=== PATIENT | female | born 1945 | race Hispanic/Latino ===

== ENCOUNTER 2018-03-05 17:20 | Emergency (ER) | payer MEDICARE ==
[~2018-03-05 17:20] MED LIST: ACET-2247 PO; ATOR40TA69 PO; DOCU100C19 PO; FERR324T10 PO; LACT10SO PO; OLAN10TA20 PO; OMEP20CA10 PO; PRAZ1CAP5 PO
[2018-03-05] MEDS ORDERED: LIDOCAINE HCL 1% 20 ML VIAL ONE (18:41)
[2018-03-05 18:44] LABS: BASOPHILS % (AUTO) 1.1 % (0.0-5.0); EOSINOPHILS % (AUTO) 0.9 % (0.0-8.0); HEMATOCRIT 37.5 % (36-48); LYMPHOCYTES % (AUTO) 17.1 % (21.0-51.0); MEAN CORPUSCULAR HEMOGLOBIN 31.2 pg (27.0-33.0); MEAN CORPUSCULAR HGB CONC 34.6 g/dL (32.0-36.0); MEAN CORPUSCULAR VOLUME 90.4 fL (79-99); MONOCYTES % (AUTO) 17.2 % (3.0-13.0); NEUTROPHILS % (AUTO) 63.7 % (40.0-77.0); PLATELET COUNT (AUTO) 162 K/uL (130-400); RED BLOOD CELL COUNT(AUTO) 4.15 MIL/uL (4.00-5.50); RED CELL DISTRIBUTION WIDTH 14.7 % (11.0-15.5)
[2018-03-05 18:53] LABS: CREATININE 1.4 mg/dL (0.5-1.5)
== END 2018-03-05 23:23 | disposition home or self-care (01) ==
LOC: EDH 17:20
DX: S01.511A Laceration without foreign body of lip, initial encounter (principal); F20.9 Schizophrenia, unspecified; F29 Unspecified psychosis not due to a substance or known physiological condition; W18.39XA Other fall on same level, initial encounter; Y93.01 Activity, walking, marching and hiking; Y92.89 Other specified places as the place of occurrence of the external cause; Y99.8 Other external cause status
CPT/HCPCS: 12013; 36415; 70450; 70486; 71045; 73562; 80048; 84484; 85025; 93005

== ENCOUNTER 2020-01-17 06:36 | Day surgery (SDC) | payer MEDICARE ==
[~2020-01-17] VITALS: Ht 162.6 cm; Wt 72.6 kg
[~2020-01-17 06:36] MED LIST changes: +DOCU-282 PO; -DOCU100C19 PO; -OMEP20CA10 PO; +OMEP20CA12 PO; +SODIUM CHLORIDE 0.9% 1000ML 1,000 ML IV ONE
[2020-01-17 07:28] VITALS: BP 126/82
[2020-01-17] MEDS ORDERED: TRAM50TA4 PO (07:54)
[2020-01-17] MEDS ORDERED: TRIH2TAB3 PO (07:54)
[2020-01-17] MEDS ORDERED: OXYB10TA30 PO (07:54)
[2020-01-17] MEDS ORDERED: FOLIC ACID PO (07:54)
[2020-01-17] MEDS ORDERED: SEROQUEL PO (07:54)
[2020-01-17] MEDS ORDERED: TROL35.4 TP (07:54)
[2020-01-17] MEDS ORDERED: BENA1POW2 MC (07:54)
[2020-01-17] MEDS ORDERED: SPIR25TA PO (07:54)
[2020-01-17] MEDS ORDERED: FURO-152 PO (07:54)
[2020-01-17] MEDS ORDERED: VITA-164 PO (07:54)
[2020-01-17] MEDS ORDERED: FLUTICASONE (07:54)
[2020-01-17] MEDS ORDERED: CALC-190 PO (07:54)
[2020-01-17] MEDS ORDERED: MULT-1203 PO (07:54)
[2020-01-17] MEDS ORDERED: DONE5TAB33 PO (07:54)
[2020-01-17] MEDS ORDERED: THIA100V3 IJ (07:54)
[2020-01-17] MEDS ORDERED: ALEN70TA10 PO (07:54)
[2020-01-17] MEDS ORDERED: LEVE500L PO (07:54)
[2020-01-17] MEDS ORDERED: PROPOFOL 10 MG/ML 20ML VIAL IV ONE (08:33)
[2020-01-17 08:51] VITALS: BP 101/59
[2020-01-17 08:55] VITALS: BP 104/78
[2020-01-17 09:00] VITALS: BP 108/70
[2020-01-17 09:05] VITALS: BP 107/65
[2020-01-17 09:15] VITALS: BP 114/70
== END 2020-01-17 09:30 | disposition home or self-care (01) ==
LOC: ENDO 06:36 → DAH 06:36 → ENDO 09:30
PROVIDERS: ATTEND Internal Medicine Gastroenterology
DX: R12 Heartburn (principal); K29.70 Gastritis, unspecified, without bleeding; K22.8 Other specified diseases of esophagus; K44.9 Diaphragmatic hernia without obstruction or gangrene; K21.9 Gastro-esophageal reflux disease without esophagitis; E11.22 Type 2 diabetes mellitus with diabetic chronic kidney disease; I12.9 Hypertensive chronic kidney disease with stage 1 through stage 4 chronic kidney disease, or unspecified chronic kidney disease; N18.9 Chronic kidney disease, unspecified; F31.9 Bipolar disorder, unspecified; M19.90 Unspecified osteoarthritis, unspecified site; G20 Parkinson's disease; F20.9 Schizophrenia, unspecified; F03.90 Unspecified dementia, unspecified severity, without behavioral disturbance, psychotic disturbance, mood disturbance, and anxiety; F41.9 Anxiety disorder, unspecified; E78.5 Hyperlipidemia, unspecified; Z98.890 Other specified postprocedural states; Z79.899 Other long term (current) drug therapy
CPT/HCPCS: 43239; 82948 ×2; A4215; A4221; A4222; A4223; A4606; A4620; A4663; J2704; J7030